=== PATIENT | male | born 1965 | race Two or more races ===

== ENCOUNTER 2018-03-22 19:53 | Emergency (ER) | payer OTHER ==
[~2018-03-22] VITALS: Ht 170.2 cm; Wt 81.6 kg
[2018-03-23] MEDS ORDERED: KETO10TA2 PO (00:44)
[2018-03-23] MEDS ORDERED: MUCINEX DM ER1 EAC1 PO (00:44)
[2018-03-23] MEDS ORDERED: OSEL75CA PO (00:44)
[2018-03-23] MEDS ORDERED: TESSALON PERLE100 M1 PO (00:44)
[2018-03-23] MEDS ORDERED: ZOFRAN ODT4 MG SL (00:45)
== END 2018-03-23 00:52 | disposition home or self-care (01) ==
LOC: ER 19:53
DX: J11.1 Influenza due to unidentified influenza virus with other respiratory manifestations (principal); B34.9 Viral infection, unspecified

== ENCOUNTER 2018-08-26 14:51 | Inpatient (IN) | payer OTHER ==
[~2018-08-26] VITALS: Ht 170.2 cm; Wt 81.6 kg
[~2018-08-26 14:51] MED LIST: KETO10TA2 PO; MUCINEX DM ER1 EAC1 PO; OSEL75CA PO; TESSALON PERLE100 M1 PO; ZOFRAN ODT4 MG SL
== END 2018-08-29 13:22 | disposition home or self-care (01) | DRG 390 ==
LOC: ER 14:51 → MEDI 23:01
PROVIDERS: ADMIT Internal Medicine
PROC: BW21ZZZ Computerized Tomography (CT Scan) of Abdomen and Pelvis (ICD-10-PCS; principal; 2018-08-26)
DX: K56.690 Other partial intestinal obstruction (principal); J10.1 Influenza due to other identified influenza virus with other respiratory manifestations; C61 Malignant neoplasm of prostate

== ENCOUNTER 2020-01-08 11:48 | Emergency (ER) | payer OTHER ==
[~2020-01-08] VITALS: Ht 167.6 cm; Wt 81.6 kg
[2020-01-08] MEDS ORDERED: DICLOFENAC SODI75 MG PO (13:37)
[2020-01-08] MEDS ORDERED: NORFLEX100MG PO (13:37)
== END 2020-01-08 13:44 | disposition home or self-care (01) ==
LOC: ER 11:48
DX: S30.0XXA Contusion of lower back and pelvis, initial encounter (principal); S50.01XA Contusion of right elbow, initial encounter; W10.9XXA Fall (on) (from) unspecified stairs and steps, initial encounter; Y93.89 Activity, other specified; Y92.098 Other place in other non-institutional residence as the place of occurrence of the external cause; Y99.8 Other external cause status

== ENCOUNTER 2021-01-10 21:10 | Emergency (ER) | payer OTHER ==
[~2021-01-10] VITALS: Ht 162.6 cm; Wt 81.6 kg
[~2021-01-10 21:10] MED LIST changes: +DICLOFENAC SODI75 MG PO; +NORFLEX100MG PO
[2021-01-10] MEDS ORDERED: NEXIUM10 MG PO (21:31)
[2021-01-10] MEDS ORDERED: NORFLEX100MG PO (22:25)
== END 2021-01-10 22:30 | disposition home or self-care (01) ==
LOC: ER 21:10
DX: R42 Dizziness and giddiness (principal)

== ENCOUNTER 2024-06-25 15:51 | Emergency (ER) | payer OTHER ==
[~2024-06-25] VITALS: Ht 172.7 cm; Wt 77.1 kg
[~2024-06-25 15:51] MED LIST changes: +NEXIUM10 MG PO
[2024-06-25] MEDS ORDERED: ORPHENADRINE CITRATE 30 MG/ML AMPUL IM STA (17:10)
[2024-06-25] MEDS ORDERED: KETOROLAC TROMETHAMINE 15 MG VIAL IM STA (17:10)
[2024-06-25] MEDS ORDERED: KETOROLAC TROMETHAMINE 30 MG VIAL ONE (17:29)
[2024-06-25] MEDS ORDERED: ORPHENADRINE CITRATE 30 MG/ML AMPUL ONE (17:30)
[2024-06-25 18:19] LABS: PH,URINE 5.5 (5.0-8.0); URINE APPEARANCE Clear; URINE BILIRRUBIN Negative (NEGATIVE); URINE BLOOD Negative; URINE COLOR Yellow; URINE GLUCOSE Negative (NEGATIVE); URINE KETONE Negative (NEGATIVE); URINE LEUKOCYTE Negative; URINE NITRATE Negative; URINE PROTEIN Negative (NEGATIVE)
[2024-06-25 18:23] LABS: URINE RBC 5.1 uL (0.0-20.8)
[2024-06-25 18:32] LABS: URINE BACTERIA 2.4 uL (0.0-1933); URINE EPITHELIAL CELLS 0.6 uL (0.0-38.8); URINE WBC 1.5 uL (0.0-23.2)
[2024-06-25] MEDS ORDERED: MEDROLPACK PO (19:12)
[2024-06-25] MEDS ORDERED: KETO10TA2 PO (19:12)
== END 2024-06-25 19:29 | disposition home or self-care (01) ==
LOC: ER 15:53
PROVIDERS: Emergency Medicine
DX: M54.9 Dorsalgia, unspecified (principal); Z85.46 Personal history of malignant neoplasm of prostate
CPT/HCPCS: 72100; 96372; 99283; J1885; J2360

== ENCOUNTER 2025-01-26 14:34 | Emergency (ER) | payer OTHER ==
[~2025-01-26] VITALS: Ht 167.6 cm; Wt 81.6 kg
[~2025-01-26 14:34] MED LIST changes: +DICLOFENAC POTA50 MG PO; +MEDROLPACK PO; +METHOCARBAMOL500 MG PO
[2025-01-26] MEDS ORDERED: DEXAMETHASONE 4 MG TABLET PO STA (19:28)
[2025-01-26] MEDS ORDERED: KETOROLAC TROMETHAMINE 30 MG VIAL IM ONE (19:30)
[2025-01-26] MEDS ORDERED: ORPHENADRINE CITRATE 30 MG/ML AMPUL IM ONE (19:30)
[2025-01-26] MEDS ORDERED: DICLOFENAC POTA50 MG PO (19:41)
== END 2025-01-26 20:08 | disposition home or self-care (01) ==
LOC: ER 14:34
DX: M77.31 Calcaneal spur, right foot (principal); M77.32 Calcaneal spur, left foot; I10 Essential (primary) hypertension